=== PATIENT | male | born 1990 | race African-American/Black ===

== ENCOUNTER 2020-07-18 10:04 | Emergency (ER) | payer BC, MEDICAID ==
[~2020-07-18] VITALS: Ht 193 cm; Wt 84.0 kg
[2020-07-18 12:43] VITALS: BP 130/72
== END 2020-07-18 13:06 | disposition home or self-care (01) ==
LOC: ER 10:04
DX: H61.23 Impacted cerumen, bilateral (principal)
CPT/HCPCS: 69209; 99281; 99282

== ENCOUNTER 2020-07-28 14:38 | Emergency (ER) | payer MEDICAID ==
[~2020-07-28] VITALS: Ht 190.5 cm; Wt 86.0 kg
[2020-07-28] MEDS ORDERED: HYDROCODONE/ACETAMINOPHEN 5/325MG TABLET PO ONE (15:45)
[2020-07-28 16:04] VITALS: BP 115/71
== END 2020-07-28 16:07 | disposition home or self-care (01) ==
LOC: ER 15:30
DX: K04.01 Reversible pulpitis (principal); F12.10 Cannabis abuse, uncomplicated
CPT/HCPCS: 99283

== ENCOUNTER 2020-08-14 15:45 | Emergency (ER) | payer MEDICAID ==
[~2020-08-14] VITALS: Ht 193 cm; Wt 77.0 kg
[2020-08-14 16:23] VITALS: BP 118/68
[2020-08-14 18:23] LABS: BASOPHILS % 0.5 % (0.0-2.0); EOSINOPHILS % 1.6 % (0.0-5.0); HEMATOCRIT. 44.3 % (42.0-52.0); HEMOGLOBIN. 14.9 g/dL (14.0-18.0); LYMPHOCYTES % 38.4 % (20.0-50.0); MEAN CORPUSCULAR HEMOGLOBIN 29.7 pg (28.0-32.0); MEAN CORPUSCULAR VOLUME 88.7 fL (80.0-94.0); MEAN PLATELET VOLUME 9.7 fl (7.4-10.4); MONOCYTES % 10.3 % (2.0-8.0); NEUTROPHILS % 49.2 % (40.0-76.0); PLATELET 186 x1000/uL (130-400)
[2020-08-14 18:40] LABS: CHLORIDE 102 mEq/L (98-107)
== END 2020-08-14 20:26 | disposition home or self-care (01) ==
LOC: ER 15:53
DX: R25.3 Fasciculation (principal)
CPT/HCPCS: 36415; 71045; 80053; 83735; 83880; 84484; 85025; 93005; 99285